=== PATIENT | female | born 1980 | race American Indian/Alaskan Native ===

== ENCOUNTER 2017-02-15 05:46 | Inpatient (IN) | payer BC, MEDICAID ==
[2017-02-15] MEDS ORDERED: LACTATED RINGERS 1,000 ML ONE (06:02)
[2017-02-15] MEDS: LACTATED RINGERS 1,000 ML IV SCH ×2 (06:20→09:00)
[2017-02-15] MEDS ORDERED: PITOCin/NS 20 UNIT/1000ML DRIP 20,000 MILLIUNITS/1,000 ML BAG IV ONE (06:52)
[2017-02-15] MEDS ORDERED: PEPCID IV ONE ×2 (06:52→07:04)
[2017-02-15] MEDS ORDERED: REGLAN ONE (06:52)
[2017-02-15] MEDS ORDERED: BICITRA ONE (06:52)
[2017-02-15 07:03] LABS: Hematocrit 42.5 % (30.3-42.9); Hemoglobin 13.8 gm/dl (10.1-14.3); Mean Corpuscular HGB Conc 32 % (30-34); Mean Corpuscular Hemoglobin 28 pg (28-32); Mean Corpuscular Volume 88 fl (79-97); Platelet Count 182 K/mm3 (140-440); Red Blood Count 4.85 M/mm3 (3.65-5.03); Red Cell Distribution Width 14.7 % (13.2-15.2); White Blood Count 8.8 K/mm3 (4.5-11.0)
[2017-02-15] MEDS ORDERED: BICITRA PO ONE (07:04)
[2017-02-15] MEDS ORDERED: EMLA TP PRN (07:04)
[2017-02-15] MEDS ORDERED: REGLAN IV ONE (07:04)
--- NOTE | 2017-02-15 07:04 | History and Physical Report ---
History of Present Illness Date of examination: 02/15/17 Date of admission: 02/15/17 05:46 Chief complaint: Scheduled Repeat section History of present illness: 36-year-old 001 at 39 weeks presents for second repeat , she is a [facility] patient. care has been unremarkable. 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 denies: smoking, alcohol abuse, prescription drug abuse, IV drug use - Obstetrical History Expected Date of Delivery: 02/21/17 Actual Gestation: 39 Week(s) 1 Day(s) : 2 Para: 1 Medications and Allergies Allergies Allergy/AdvReac Type Severity Reaction Status Date / Time No Known Allergies Allergy Verified 02/15/17 06:48 Review of Systems Constitutional: no weight gain, no fever, no chills, no sweats, no fatigue, no weakness, no lethargy, no chronic headaches Cardiovascular: no chest pain, no palpitations, no syncope, no lightheadedness, no shortness of breath, no dyspnea on exertion, no high blood pressure, no decreased exercise tolerance Respiratory: no cough, no cough with sputum, no hemoptysis, no shortness of breath, no dyspnea on exertion Gastrointestinal: no abdominal pain, no nausea, no vomiting, no heartburn Genitourinary: no vaginal bleeding, no vaginal discharge, no leakage of fluid, no pelvic pain - Vital Signs Vital signs: Vital Signs Temp Resp 97.7 F 02/15/17 06:21 02/15/17 06:21 Temp Pulse Resp BP Pulse Ox 97.7 F 20 02/15/17 06:21 02/15/17 06:21 - Physical Exam Cardiovascular: Regular rate, Normal S1, Normal S2 Lungs: Positive: Clear to auscultation, Normal air movement Abdomen: Positive: normal appearance, soft, normal bowel sounds. Negative: distention, tenderness, guarding, rigidity Genitourinary (Female): Positive: normal external genitalia Uterus: Positive: enlarged (EFW ~ 3800). Negative: tender Extremities: Positive: normal - Obstetrical FHR: category 1 Results All other labs normal. Assessment and Plan A: 36-year-old 001 at 39+1 presents for second repeat -Cat 1 tracing P: -She has been consented -Proceed to the OR once available - Patient Problems (1) 39 weeks gestation of Current Visit: Yes Status: Acute (2) Previous section Current Visit: Yes Status: Acute
[2017-02-15] MEDS ORDERED: PITOCin/NS 20 UNIT/1000ML DRIP 20 UNITS/1,000 ML BAG IV SCH ×2 (08:00→12:00)
[2017-02-15] MEDS ORDERED: ANCEF/STERILE WATER 2 GM/20 ML 2 GM/20 ML SYRINGE IV NR (08:00)
--- NOTE | 2017-02-15 09:45 | Anesthesia Consultation ---
Anesthesia Consult and Med Hx Date of service: 02/15/17 - Airway Anesthetic Teeth Evaluation: Good ROM Head & Neck: Adequate Mental/Hyoid Distance: Adequate Mallampati Class: Class II Intubation Access Assessment: Probably Good - Pre-Operative Health Status ASA Pre-Surgery Classification: ASA2 Proposed Anesthetic Plan: Epidural, Spinal - Pulmonary Hx Asthma: No COPD: No Hx Pneumonia: No - Cardiovascular System Hx Hypertension: No - Central Nervous System Hx Seizures: No Hx Psychiatric Problems: No - Endocrine Hx Renal Disease: No Hx End Stage Renal Disease: No Hx Hypothyroidism: No Hx Hyperthyroidism: No - Hematic Hx Anemia: No Hx Sickle Cell Disease: No - Other Systems Hx Alcohol Use: No - Additional Comments Anesthesia Medical History Comments: repeat
[2017-02-15] MEDS ORDERED: BENADRYL IV PRN (09:47)
[2017-02-15] MEDS ORDERED: DILAUDID IV PRN (09:47)
[2017-02-15] MEDS ORDERED: ZOFRAN IV PRN (09:47)
[2017-02-15] MEDS ORDERED: NARCAN 0.4 MG/1 ML IV PRN ×2 (09:47→12:00)
--- NOTE | 2017-02-15 09:47 | Anesthesia Day of Surgery ---
Anesthesia Day of Surgery - Day of Surgery Patient Examined: Yes Patient H&P Reviewed: Yes Patient is NPO: Yes (last light meal @ 4AM, scheduled for 11:30AM)
[2017-02-15] MEDS ORDERED: SODIUM CHLORIDE FLUSH SYRINGE 10 ML IV NR ×2 (10:00→12:00)
[2017-02-15] MEDS ORDERED: MORPHINE ONE (10:28)
[2017-02-15] MEDS ORDERED: NACL 0.9% IR ONE (11:07)
[2017-02-15] MEDS ORDERED: WATER FOR IRRIG STERILE IR ONE (11:07)
[2017-02-15] MEDS ORDERED: ZOFRAN ONE (11:13)
[2017-02-15] MEDS ORDERED: METHERGINE IM ONE ×2 (11:15→11:20)
[2017-02-15] MEDS ORDERED: LANSINOH TP PRN (12:00)
[2017-02-15] MEDS ORDERED: MILK OF MAGNESIA PO PRN (12:00)
[2017-02-15] MEDS ORDERED: MYLICON PO PRN (12:00)
[2017-02-15] MEDS ORDERED: MOTRIN PO PRN (12:00)
[2017-02-15] MEDS ORDERED: TUCKS PAD TP PRN (12:00)
[2017-02-15] MEDS ORDERED: ANUCORT-HC PR PRN (12:00)
[2017-02-15] MEDS ORDERED: TYLENOL PO PRN (12:00)
[2017-02-15] MEDS ORDERED: PHENERGAN PR PRN (12:00)
[2017-02-15] MEDS ORDERED: SENOKOT PO PRN (12:00)
--- NOTE | 2017-02-15 12:00 | Operative Report ---
Operative Report Operative Report: DATE: 02/15/2017 PREOPERATIVE DIAGNOSIS: 36-year-old 001 at 39+1 weeks, prior , desires repeat, hypertrophic scar POSTOP DIAGNOSIS: As above NAME OF PROCEDURE: Repeat low transverse section Scar revision SURGEON: ROBIN FLORIAN MD OUTSIDE PLANT ENGINEER: [] ANESTHESIA: Combined spinal epidural EBL: 700 mL PATHOLOGY SPECIMEN: None URINE OUTPUT: 150 mL FINDINGS: Female in cephalic presentation, time of was 11:01, Apgars 9 and 9, weight 6 lbs. 14 oz. or 3126 g, minimal pelvic adhesions , normal uterus but with very thin lower segment window, normal tubes and ovaries bilaterally, hypertrophic scar DESCRIPTION OF PROCEDURE: She was taken to the operating room where she was prepped and draped in a sterile fashion, she was placed in the dorsal supine position. Pfannenstiel incision was performed through her prior incisional scar which was carried through to underlying rectus fascia which was on the midline. The fascial incision was extended laterally with use of Linton scissors, the anterior leaf was then grasped with Kochers forceps elevated dissected sharply and bluntly off the underlying rectus in a similar fashion inferior leaf was grasped elevated dissected sharply and bluntly off the underlying rectus. The rectus was in the midline, good visualization of bladder was noted. A bladder blade was placed in the patient's pelvic cavity; bladder flap could not be created. A hysterotomy incision was then performed in the lower segment with clear amniotic fluid noted, hysterotomy incision was extended laterally with the use of fingers manually. in cephalic presentation was delivered in the usual manner; cord was clamped and cut infant was handed over to waiting nursery staff. The placenta was then delivered manually intact, the uterus was exteriorized cleared of all clots and debris. Hysterotomy incision was then closed in a running locked fashion with 0 Vicryl on a CTX; using the same suture was imbricate the initial layer. Interrupted [id number]-[id number] stitches were used to obtain hemostasis. Uterus was then returned to the patient 's pelvic cavity; peritoneal edges were grasped with hemostats and Rocío's elevated copiously irrigation was used to clear the gutters of all clots and debris. Tercel hemostatic agent was then applied to the hysterotomy incision as a means to prevent future bleeding. The peritoneal layer was then closed in a running fashion with 3-0 Vicryl and the rectus was reapproximated with a single bfjyax-wv-owodl stitch. The fascia was closed in a running fashion with 0 Vicryl and tied in the opposite side. The subcutaneous layer was irrigated and then reapproximated with interrupted nbbmgh-uv-xkpfk stitches. The hypertrophic scar was then grabbed with Allis forceps, elevated and excised off the surgical field. The skin was then closed in a subcuticular manner with 4-0 Vicryl. She tolerated the procedure well lap and instrument counts were correct 2 she did receive 2 g of Ancef prior to incision she is transferred to PACU in stable condition thank you.
[2017-02-15] MEDS: TORADOL IV PRN ×2 (12:48→23:08)
[2017-02-15] MEDS: D5LR 1,000 ML IV SCH ×2 (12:56→21:24)
[2017-02-15] MEDS ORDERED: NEO SYNEPHRINE/NS Syringe(OR USE) IV ONE (13:00)
--- NOTE | 2017-02-15 14:15 | Post Anesthesia Evaluation ---
- Post Anesthesia Evaluation Patient Participated: Yes Airway Patent: Yes Stable Respiratory Function: Yes Nausea/Vomiting: No Temp > 96.8F: Yes Pain Manageable: Yes Adequeate Hydration: Yes Anesthesia Complications: No Block Receding Appropriately: Yes Patient on Ventilator: No
[2017-02-16 00:51] LABS: Hematocrit 36.5 % (30.3-42.9); Hemoglobin 11.9 gm/dl (10.1-14.3)
[2017-02-16] MEDS ORDERED: BOOSTRIX IM ONE (06:00)
[2017-02-16] MEDS: TORADOL IV PRN ×2 (06:04→13:26)
[2017-02-16] MEDS: D5LR 1,000 ML IV SCH (06:37)
--- NOTE | 2017-02-16 07:37 | Progress Note ---
Assessment and Plan POD# 1 s/p Repeat LTCS -Doing well P: -Continue routine post op care -Anticipate discharge in 24-48 hours - Patient Problems (1) Status post repeat low transverse section Current Visit: Yes Status: Acute (2) 39 weeks gestation of Current Visit: Yes Status: Acute (3) Previous section Current Visit: Yes Status: Acute Subjective - Subjective Date of service: 02/16/17 Principal diagnosis: POD # 1 Interval history: Patient seen and examined, stable doing well. Patient reports: appetite normal, voiding normally, pain well controlled, flatus , no dizzy ambulation, no nauseated Marcell: doing well Objective - Vital Signs Latest vital signs: Vital Signs Temp Pulse Resp BP Pulse Ox 02/16/17 03:55 98.1 F 80 20 108/70 02/15/17 23:25 98.1 F 85 20 114/74 02/15/17 20:00 98.4 F 71 20 111/70 02/15/17 16:49 98.7 F 73 20 119/71 02/15/17 13:18 20 02/15/17 13:10 20 02/15/17 13:05 98.1 F 02/15/17 12:55 59 L 10 L 126/75 100 02/15/17 12:50 64 11 L 116/80 100 02/15/17 12:45 75 8 L 110/75 100 02/15/17 12:41 53 L 12 116/77 99 02/15/17 12:35 74 13 113/71 100 02/15/17 12:30 97.5 F L 61 13 113/71 100 02/15/17 12:25 63 23 120/75 99 02/15/17 12:20 65 10 L 122/77 100 02/15/17 12:15 70 10 L 120/75 100 02/15/17 12:10 74 19 121/74 100 02/15/17 12:05 74 11 L 115/65 100 02/15/17 12:00 85 15 106/71 99 02/15/17 11:56 84 12 02/15/17 10:10 82 113/80 02/15/17 10:07 94 H 114/27 Intake and Output 02/15/17 02/16/17 02/16/17 22:59 06:59 14:59 Intake Total 1480 1000 Output Total 400 600 Balance 1080 400 Intake: IV 1000 1000 D5lr 1,000 ml @ 125 mls/ 1000 1000 hr IV DIRECT DALE Rx#: [id number] Oral 480 Output: Urine 400 600 Indwelling Catheter 400 600 Other: Total, Intake Amount 120 Total, Output Amount 400 600 - Exam Abdomen: Present: normal appearance, soft. Absent: distention, tenderness, guarding, rigidity Uterus: Present: fundal height below umbilicus. Absent: tenderness Extremities: Present: normal Incision: Present: dry, intact. Absent: erythematous, suppurative, edematous, skin
--- NOTE | 2017-02-16 10:52 | Progress Note ---
Subjective Date of service: 02/16/17 Principal diagnosis: POD # 1 Interval history: 1st POD after Patient is in the bed, comfortable. Pain is well controlled with pain meds. Ambulated well. No residual neurological deficit. No pruritus. No anesthesia complications Objective - Constitutional Vitals: Vital Signs - 12hr 02/15/17 02/16/17 02/16/17 23:25 03:55 08:00 Temperature 98.1 F 98.1 F 97.9 F Pulse Rate 85 80 71 Respiratory 20 20 18 Rate Blood Pressure 114/74 108/70 101/58 - Labs CBC & Chem 7: 02/16/17 00:28
[2017-02-16] MEDS: FEOSOL PO SCH (13:40)
[2017-02-16] MEDS: PRENATAL VITAMIN PO SCH (13:41)
[2017-02-16] MEDS: PERCOCET 5/325 PO PRN (21:05)
[2017-02-17] MEDS: PERCOCET 5/325 PO PRN ×3 (03:13→16:56)
--- NOTE | 2017-02-17 08:45 | Progress Note ---
Assessment and Plan - Patient Problems (1) Status post repeat low transverse section Onset Date: 02/17/17 Current Visit: Yes Status: Resolved Plan to address problem: A: S/P Repeat C Section - POD #1 Doing well P: May go home tomorrow if remains stable. Subjective - Subjective Date of service: 02/17/17 Principal diagnosis: POD # 2 Interval history: Pt is feeling well without complaints except incisional pains. She is tolerating a reg diet without nausea or vomiting, ambulating and voiding without difficulty. Patient reports: appetite normal, voiding normally, pain well controlled, flatus , ambulating normally : doing well, nursing well Objective - Vital Signs Latest vital signs: Vital Signs Temp Pulse Resp BP 02/17/17 00:30 98.1 F 88 20 113/63 02/16/17 16:00 98.0 F 80 18 112/68 Intake and Output 02/16/17 02/17/17 02/17/17 22:59 06:59 14:59 Intake Total 240 480 Output Total 600 Balance -360 480 Intake: Oral 240 480 Output: Urine 600 Void 600 Other: Total, Intake Amount 240 240 Total, Output Amount 600 # Voids Void 1 1 - Exam Breasts: Present: deferred Cardiovascular: Present: Regular rate Lungs: Present: Clear to auscultation Abdomen: Present: normal appearance, soft Uterus: Present: normal, firm, fundal height below umbilicus Extremities: Present: normal Incision: Present: normal, dry, intact - Labs Labs: Laboratory Tests 02/15/17 02/15/17 02/16/17 06:15 06:15 00:28 WBC 8.8 RBC 4.85 Hgb 13.8 11.9 Hct 42.5 36.5 D MCV 88 MCH 28 MCHC 32 RDW 14.7 Plt Count 182 Blood Type B POSITIVE Antibody Screen TNR VASILIY Antibody Screen Negative
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
[2017-02-17] MEDS: PRENATAL VITAMIN PO SCH (10:47)
[2017-02-17] MEDS: FEOSOL PO SCH (10:47)
[2017-02-18] MEDS: PERCOCET 5/325 PO PRN ×2 (00:15→11:15)
[2017-02-18] MEDS: PRENATAL VITAMIN PO SCH (11:15)
[2017-02-18] MEDS: FEOSOL PO SCH (11:15)
[2017-02-18 12:38] VITALS: BP 108/74
== END 2017-02-18 12:00 | disposition home or self-care (01) | DRG 766 ==
LOC: APU 05:46 → OB 13:38
PROVIDERS: ADMIT Obstetrics & Gynecology Gynecology; ATTEND Obstetrics & Gynecology Gynecology
PROC: 10D00Z1 Extraction of Products of Conception, Low, Open Approach (ICD-10-PCS; principal; 2017-02-15)
DX: O34.211 Maternal care for low transverse scar from previous cesarean delivery (principal); Z3A.39 39 weeks gestation of pregnancy; Z37.0 Single live birth
CPT/HCPCS: 36415; 59025; 85014; 85018; 85027; 86850; 86900; 86901; 90471; 90715; 96360; 96361; 99211; C9250; G0463; J1170; J1885; J2210; J2270; J2370; J2405; J2590; J2765; J7120; J7121

== ENCOUNTER 2019-09-16 07:33 | Emergency (ER) | payer BC, MEDICAID, OTHER ==
[2019-09-16 07:50] VITALS: BP 136/82
[2019-09-16] MEDS ORDERED: HYDROcodone/ACETAMINOPHEN 5-325 MG TAB PO ONE (10:30)
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
[2019-09-16 12:56] LABS: HCG Qualitative,Urine Negative (Negative)
== END 2019-09-16 13:02 | disposition home or self-care (01) ==
LOC: ED 07:33
DX: S06.9X9A Unspecified intracranial injury with loss of consciousness of unspecified duration, initial encounter (principal); S80.01XA Contusion of right knee, initial encounter; Z79.1 Long term (current) use of non-steroidal anti-inflammatories (NSAID); Z79.899 Other long term (current) drug therapy; V49.49XA Driver injured in collision with other motor vehicles in traffic accident, initial encounter; Y93.89 Activity, other specified; Y92.410 Unspecified street and highway as the place of occurrence of the external cause; Y99.8 Other external cause status
CPT/HCPCS: 70450; 81025